=== PATIENT | male | born 1985 | race Caucasian/White ===

== ENCOUNTER 2020-09-29 10:52 | Emergency (ER) | payer SELFPAY ==
[2020-09-29] MEDS ORDERED: Ketorolac Tromethamine 30 MG/ML VIAL ONE (11:33)
[2020-09-29] MEDS ORDERED: Acetaminophen 500 MG TAB ONE (11:33)
== END 2020-09-29 12:20 | disposition home or self-care (01) ==
LOC: ERS 10:52
DX: M19.012 Primary osteoarthritis, left shoulder (principal)
CPT/HCPCS: 93005; 96372; J1885

== ENCOUNTER 2021-04-12 18:21 | Emergency (ER) | payer SELFPAY ==
[2021-04-12] MEDS ORDERED: Ketorolac Tromethamine 30 MG/ML VIAL ONE (18:50)
[2021-04-12] MEDS ORDERED: Acetaminophen 500 MG TAB ONE (18:50)
== END 2021-04-12 19:07 | disposition home or self-care (01) ==
LOC: ERS 18:21
DX: S39.012A Strain of muscle, fascia and tendon of lower back, initial encounter (principal); X50.0XXA Overexertion from strenuous movement or load, initial encounter
CPT/HCPCS: 96372; 99283; J1885

== ENCOUNTER 2021-09-30 17:13 | Emergency (ER) | payer SELFPAY ==
[2021-09-30 18:10] LABS: #Eosinphils 0.4 thou/uL (0.0-0.7); #Monocytes 0.7 thou/uL (0.11-0.59); #Neutrophils 4.1 thou/uL (1.40-6.50); %Basophils 0.6 % (0.0-1.0); %Eosinophils 5.9 % (0.0-10.0); %Lymphocytes 15.8 % (21.0-51.0); %Monocytes 11.8 % (0.0-10.0); %Neutrophils 65.9 % (42.0-75.0); Hemoglobin 16.7 g/dL (14.0-18.0); Mean Corpuscular Hemoglobin 30.4 pg (27.0-31.0); Mean Corpuscular Volume 89.5 fL (78.0-98.0); Mean Platelet Volume 5.9 fL (7.4-10.4); Platelet Count 258 thou/uL (130-400); RBC Distribution Width 11.8 % (11.5-14.5); Red Blood Cell (RBC) Count 5.49 mill/uL (4.70-6.10); White Blood Cell (WBC) Count 6.2 thou/uL (4.8-10.8)
[2021-09-30 18:29] LABS: ALT (SGPT) 64 U/L (8-55); AST (SGOT) 39 U/L (5-34); Albumin 4.7 g/dL (3.5-5.0); Alkaline Phosphatase 90 U/L (40-110); Anion Gap 11 mmol/L (10-20); BUN (Urea Nitrogen) 13 mg/dL (8.9-20.6); Calc. Creatinine Clearance 0 mL/min (70-130); Carbon Dioxide 25 mmol/L (22-29); Chloride 106 mmol/L (98-107); Glucose 93 mg/dL (70-105); Potassium 3.4 mmol/L (3.5-5.1); Protein, Total 7.7 g/dL (6.0-8.3); Sodium 139 mmol/L (136-145)
[2021-09-30 19:42] LABS: HBCM Index 0.08 S/CO (0-0.79); HBSAg Index 0.22 S/CO (0-0.99); Hep A IgM AB Non-Reactive (NonReactive); Hep A IgM S/CO 0.14 S/CO (0-0.79); Hep B Surf Ag Non-Reactive S/CO (NonReactive); Hep C IgG Ab Non-Reactive (NonReactive); Hep C Index 0.05 S/CO (0-0.79); Hepatitis B Core IgM Abs Non-Reactive (NonReactive)
== END 2021-09-30 20:03 | disposition home or self-care (01) ==
LOC: ERS 17:13
DX: R19.7 Diarrhea, unspecified (principal)
CPT/HCPCS: 36415; 80053; 80074; 85025; 87045; 87046; 87427; 87449; 96360; 96361

== ENCOUNTER 2022-01-10 02:42 | Emergency (ER) | payer SELFPAY ==
[2022-01-10] MEDS ORDERED: HYDROcodone/Acetaminophen 10/325 mg Tablet ONE (04:55)
== END 2022-01-10 05:04 | disposition home or self-care (01) ==
LOC: ERS 02:42
DX: H60.502 Unspecified acute noninfective otitis externa, left ear (principal)
CPT/HCPCS: 99282

== ENCOUNTER 2022-06-27 11:21 | Emergency (ER) | payer SELFPAY | END 2022-06-27 13:19 | disposition home or self-care (01) | LOC: ERS 11:21 | DX: M19.012 Primary osteoarthritis, left shoulder (principal); X50.0XXA Overexertion from strenuous movement or load, initial encounter ==

== ENCOUNTER 2022-07-21 18:10 | Emergency (ER) | payer SELFPAY | END 2022-07-21 20:25 | disposition home or self-care (01) | LOC: ERS 18:10 | DX: L03.115 Cellulitis of right lower limb (principal) | CPT/HCPCS: 99283 ==

== ENCOUNTER 2022-10-26 06:18 | Emergency (ER) | payer SELFPAY | END 2022-10-26 08:45 | disposition home or self-care (01) | LOC: ERS 06:18 | DX: H60.501 Unspecified acute noninfective otitis externa, right ear (principal) | CPT/HCPCS: 99282 ==

== ENCOUNTER 2023-05-29 18:22 | Emergency (ER) | payer SELFPAY ==
[2023-05-29] MEDS ORDERED: Dexamethasone 10 MG/ML VIAL ONE (19:47)
[2023-05-29] MEDS ORDERED: Ketorolac Tromethamine 30 MG (1 mL) VIAL ONE (19:47)
[2023-05-29 20:09] LABS: SARS-CoV-2 NAA Rapid Test Not Detected (NotDetected)
== END 2023-05-29 20:13 | disposition home or self-care (01) ==
LOC: ERS 18:22
DX: B34.9 Viral infection, unspecified (principal)
CPT/HCPCS: 96372; 99283; J1100; J1885

== ENCOUNTER 2024-03-02 06:23 | Emergency (ER) | payer SELFPAY ==
[2024-03-02] MEDS ORDERED: Ketorolac Tromethamine 30 MG (1 mL) VIAL ONE (06:42)
[2024-03-02] MEDS ORDERED: Ondansetron PF 4 MG/2 ML Vial ONE (06:42)
[2024-03-02 07:00] LABS: #Basophils Less than 0.03 10x3/uL (0.0-0.2); %Basophils 0.2 % (0.0-1.0); %Lymphocytes 25.1 % (21.0-51.0); %Monocytes 8.4 % (0.0-10.0); %Neutrophils 60.8 % (42.0-75.0); Hematocrit 47.8 % (42.0-52.0); Mean Corpuscular HGB CONC 35.6 g/dL (32.0-36.0); Mean Corpuscular Hemoglobin 30.2 pg (27.0-31.0); Mean Corpuscular Volume 85.1 fL (78.0-98.0); Mean Platelet Volume 8.3 fL (7.4-10.4); Platelet Count 356 10x3/uL (130-400); RBC Distribution Width 12.1 % (11.5-14.5); Red Blood Cell (RBC) Count 5.62 mill/uL (4.70-6.10)
[2024-03-02 07:14] LABS: ALT (SGPT) 81 U/L (8-55); AST (SGOT) 37 U/L (5-34); Albumin 4.9 g/dL (3.5-5.0); Alkaline Phosphatase 98 U/L (40-110); Anion Gap 14 mmol/L (10-20); BUN (Urea Nitrogen) 16 mg/dL (8.9-20.6); Bilirubin, Total 0.8 mg/dL (0.2-1.2); Calc. Creatinine Clearance 0 mL/min (70-130); Calcium 9.7 mg/dL (7.8-10.44); Carbon Dioxide 21 mmol/L (22-29); Chloride 106 mmol/L (98-107); Estimated GFR 114; Globulin 3.1 g/dL (2.4-3.5); Glucose 105 mg/dL (70-105); Lipase 20 U/L (8-78); Potassium 4.4 mmol/L (3.5-5.1); Sodium 137 mmol/L (136-145)
[2024-03-02] MEDS ORDERED: Orphenadrine Citrate 60 MG/2 ML VIAL ONE (08:07)
[2024-03-02] MEDS ORDERED: Dexamethasone 10 MG/ML VIAL ONE (08:08)
[2024-03-02 08:32] LABS: Bacteria/HPF None Seen HPF (None Seen); Bilirubin Negative (Negative); Blood, Urine Negative (Negative); CAUTI Indications for Culture Dysuria,urgency,freq; Clarity Clear (Clear); Glucose, Urine (Dipstick) Normal (Negative); Ketone, Urine Negative (Negative); Leukocyte Negative Leu/uL (Negative); Nitrite Negative (Negative); Protein, Urine (Dipstick) Negative (Neg-Trace); RBC/HPF 0-3 HPF (0-3); Specific Gravity, Urine 1.028 (1.002-1.036); Squamous Epithelial 0-3 HPF (0-3); Urobilinogen Normal mg/dL (Less than 2); WBC/HPF 0-3 HPF (0-3)
[2024-03-02 08:50] LABS: Urine Culture Reflex No No
== END 2024-03-02 10:15 | disposition home or self-care (01) ==
LOC: ERS 06:23
DX: M54.50 Low back pain, unspecified (principal); M46.1 Sacroiliitis, not elsewhere classified; Z87.891 Personal history of nicotine dependence
CPT/HCPCS: 74176; 80053; 81001; 83690; 85025; 96374; 96375; J1100; J1885; J2360; J2405

== ENCOUNTER 2024-03-10 05:22 | Emergency (ER) | payer SELFPAY ==
[2024-03-10] MEDS ORDERED: Ketorolac Tromethamine 30 MG (1 mL) VIAL ONE (07:23)
[2024-03-10] MEDS ORDERED: Methocarbamol 500 MG TAB ONE (07:23)
== END 2024-03-10 07:57 | disposition home or self-care (01) ==
LOC: ERS 05:22
DX: M54.50 Low back pain, unspecified (principal); M46.1 Sacroiliitis, not elsewhere classified; Z87.891 Personal history of nicotine dependence
CPT/HCPCS: 96372; 99282; J1885